=== PATIENT | female | born 2000 | race African-American/Black ===

== ENCOUNTER 2024-03-05 11:16 | Emergency (ER) | payer OTHER ==
[~2024-03-05] VITALS: Ht 170.2 cm; Wt 75.0 kg
[2024-03-05 11:27] VITALS: O2SAT 100
[2024-03-05 11:50] LABS: BASOPHILS % 0.4 % (0.0-2.0); EOSINOPHILS % 0.4 % (0.0-5.0); HEMATOCRIT. 41.5 % (36.0-48.0); HEMOGLOBIN. 13.5 g/dL (12.0-16.0); LYMPHOCYTES % 14.4 % (20.0-50.0); MEAN CORPUSCULAR HEMOGLOBIN 28.4 pg (28.0-32.0); MEAN CORPUSCULAR HGB CONC 32.4 g/dL (31.0-37.0); MEAN CORPUSCULAR VOLUME 87.7 fL (81.0-99.0); MEAN PLATELET VOLUME 8.3 fl (7.4-10.4); MONOCYTES % 4.4 % (2.0-8.0); NEUTROPHILS % 80.4 % (40.0-76.0); PLATELET 284 x1000/uL (130-400); RED BLOOD CELL COUNT 4.73 mill/uL (4.2-5.4); RED CELL DISTRIBUTION WIDTH 12.9 % (11.6-14.6); WHITE BLOOD COUNT 11.4 x1000/uL (4.5-11.0)
[2024-03-05 11:56] LABS: CHLORIDE 105 mEq/L (98-107); POTASSIUM 3.5 mEq/L (3.5-5.1); SODIUM 139 mEq/L (136-145)
[2024-03-05 11:57] LABS: CALCIUM 9.8 mg/dL (8.7-10.4); CARBON DIOXIDE 19 mEq/L (21-32)
[2024-03-05 12:02] LABS: CREATININE 1.1 mg/dL (0.6-1.0); GLUCOSE 92 mg/dL (70-105); UREA NITROGEN BLOOD 8 mg/dL (9-23)
[2024-03-05 12:04] LABS: ALANINE AMINOTRANSFERASE 26 IU/L (10-49); ALBUMIN 4.7 g/dL (3.2-4.8); ASPARTATE AMINOTRANSFERASE 27 IU/L (<34); BILIRUBIN DIRECT 0.2 mg/dL (<=3.0)
[2024-03-05 12:05] LABS: BILIRUBIN TOTAL 0.6 mg/dL (0.1-1.0); PROTEIN TOTAL 7.6 g/dL (6.0-8.3)
[2024-03-05 12:07] LABS: TROPONIN I HIGH SENSITIVITY < 4 ng/L (3.0-34)
[2024-03-05 12:08] LABS: HCG SCREEN NEGATIVE
[2024-03-05] MEDS: SODIUM CHLORIDE 0.9% 1,000 ML IV ONE (12:17)
[2024-03-05 13:33] LABS: CHLORIDE 110 mEq/L (98-107); POTASSIUM 3.7 mEq/L (3.5-5.1); SODIUM 141 mEq/L (136-145)
[2024-03-05 13:34] LABS: CALCIUM 8.7 mg/dL (8.7-10.4); CARBON DIOXIDE 25 mEq/L (21-32)
[2024-03-05 13:39] LABS: GLUCOSE 87 mg/dL (70-105); UREA NITROGEN BLOOD 8 mg/dL (9-23)
[2024-03-05 14:25] VITALS: BP 115/72; PULSE 62; RESP 18; TEMP 36.89184; O2SAT 99
== END 2024-03-05 14:39 | disposition home or self-care (01) ==
LOC: ER 11:16
DX: F41.0 Panic disorder [episodic paroxysmal anxiety] (principal); Z98.890 Other specified postprocedural states
CPT/HCPCS: 99291; 80076; 80048; 84703; 83880; 83690; 85025; 85379; 84484; 36415; 71045; 93005; J7030

== ENCOUNTER 2024-03-29 05:57 | Emergency (ER) | payer OTHER ==
[~2024-03-29] VITALS: Ht 167.6 cm; Wt 75.0 kg
[2024-03-29 06:04] VITALS: O2SAT 100
[2024-03-29 07:55] LABS: HEMATOCRIT. 38.6 % (36.0-48.0); HEMOGLOBIN. 12.9 g/dL (12.0-16.0); MEAN CORPUSCULAR HEMOGLOBIN 29.6 pg (28.0-32.0); MEAN CORPUSCULAR HGB CONC 33.4 g/dL (31.0-37.0); MEAN CORPUSCULAR VOLUME 88.5 fL (81.0-99.0); MEAN PLATELET VOLUME 8.9 fl (7.4-10.4); PLATELET 191 x1000/uL (130-400); RED BLOOD CELL COUNT 4.36 mill/uL (4.2-5.4); RED CELL DISTRIBUTION WIDTH 13.8 % (11.6-14.6); WHITE BLOOD COUNT 10.3 x1000/uL (4.5-11.0)
[2024-03-29 07:59] LABS: CHLORIDE 108 mEq/L (98-107); POTASSIUM 3.9 mEq/L (3.5-5.1); SODIUM 139 mEq/L (136-145)
[2024-03-29 08:00] LABS: CALCIUM 9.3 mg/dL (8.7-10.4); CARBON DIOXIDE 25 mEq/L (21-32)
[2024-03-29] MEDS: MAGNESIUM/ALUMINUM HYDROXIDE/SIMETHICONE 30ML UDC PO STA (08:00)
[2024-03-29 08:05] LABS: CREATININE 0.9 mg/dL (0.6-1.0); GLUCOSE 112 mg/dL (70-105); UREA NITROGEN BLOOD 8 mg/dL (9-23)
[2024-03-29 08:06] LABS: HCG SCREEN NEGATIVE
[2024-03-29 08:17] LABS: DIFFERENTIAL COMMENT 1
[2024-03-29 08:31] LABS: ETHANOL BLOOD < 10 mg/dL (<10); TROPONIN I HIGH SENSITIVITY < 4 ng/L (3.0-34)
[2024-03-29] MEDS ORDERED: IBUP-2029 MT (09:53)
[2024-03-29 10:00] VITALS: BP 105/68; PULSE 71; RESP 16; TEMP 36.66960; O2SAT 100
[2024-03-29 10:49] LABS: PLATELET ESTIMATE NORMAL
== END 2024-03-29 10:00 | disposition home or self-care (01) ==
LOC: ER 05:57
DX: R07.89 Other chest pain (principal); F41.9 Anxiety disorder, unspecified; Z98.890 Other specified postprocedural states
CPT/HCPCS: 36415; 71045; 80048; 80320; 84484; 84703; 85025; 93005; 99285; G0480